=== PATIENT | male | born 1950 | race Caucasian/White ===

== ENCOUNTER → 2017-04-25 | Outpatient (CLI) | payer MEDICARE, BC ==
[~2017-04-25] MED LIST: ALTACE5 M1 PO; ASPIRIN81 M1 PO; LIPITOR PO; METOPROLOL SUCC50 MG PO; PLAVIX PO
--- NOTE | ~2017-04-25 | US5 ---
[facility] A Service of [facility] & [facility] RADIOLOGY TEXT RESULTS PATIENT: PEDRO DON LOCATION: [facility] : 46 UNIT #: [id number] AGE: [address]: Darrell Hearn MD SEX: M ORDER DR: [id number] [facility] [address] [place], [place] [address] [id number] O MR#: [id number] Acc #: [id number] NAME: PEDRO DON : 1950 SEX: M STUDY DATE/TIME: 04/25/2017 7:13 UNIT: [facility] ROOM: STUDY DESCRIPTION: US Abdominal Complete Attending Physician: Darrell Hearn M.D. Referring Physician: Darrell Hearn M.D. Ordering Physician: Darrell Hearn M.D. Primary Care Physician: Darrell Hearn M.D. MEDICAL IMAGING REPORT This report is preliminary unless electronic signature is present EXAM Abdominal ultrasound complete 04/25/2017 HISTORY Diffuse abdominal pain and abdominal bloating for 2 months Medicare welcome exam. FINDINGS The liver is homogeneous in echotexture and demonstrates no cystic or solid mass lesions. The intra- and extrahepatic bile ducts are not dilated. The gallbladder is normal with no evidence of cholelithiasis, wall thickening or pericholecystic fluid. The common duct measures 4 mm. The pancreas is normal. The spleen measures 9.3 cm in greatest diameter. Calcified granulomas are seen within the spleen. The visualized portions of the abdominal aorta and inferior vena cava are within normal limits. The kidneys are normal bilaterally. IMPRESSION 1. Normal gallbladder. 2. Multiple calcified granulomas in the spleen. 3. Abdominal aorta is incompletely visualized due to excessive bowel gas. No definite abdominal aortic aneurysm is seen on this limited exam. Dictated by... Jonas Georges M.D. THIS IS AN ELECTRONICALLY VERIFIED REPORT Jonas Georges M.D. at 04/26/2017 8:09 AM TRUONG/moe TD: 04/25/2017 10:53 [facility] A Service of [facility] & [facility] RADIOLOGY TEXT RESULTS PATIENT: PEDRO DON LOCATION: [facility] #: [id number] : 46 UNIT #: [id number] AGE: [address]: Darrell Hearn MD SEX: M ORDER DR: HASEEB #: [id number] MEDICAL IMAGING REPORT Page 1 of 1 COPY
== END | disposition home or self-care (01) ==
LOC: CGUS 06:41
DX: Z00.00 Encounter for general adult medical examination without abnormal findings (principal); D73.89 Other diseases of spleen
CPT/HCPCS: 76700